=== PATIENT | female | born 1985 | race Caucasian/White ===

== ENCOUNTER 2025-03-23 19:25 | Emergency (ER) | payer BC, SELFPAY ==
[2025-03-23 19:35] VITALS: BP 154/102
[2025-03-23 20:16] LABS: Hematocrit 37.2 % (37.0-47.0); Hemoglobin 12.6 g/dL (12.0-16.0); Mean Corp Hgb Conc. 33.9 g/dL (33.0-37.0); Mean Corpuscular Volume 91.0 fL (81.0-99.0); Nucleated Red Blood Cells % 0 %; Platelet Count 320 10^3/uL (130-400); Red Cell Dist. Width 12.6 % (11.5-14.5)
[2025-03-23 20:21] LABS: HCG, Serum Qualitative Screen Negative
[2025-03-23 20:22] LABS: Chloride 104 mmol/L (98-107); Potassium 3.9 mmol/L (3.5-5.1); Sodium 139 mmol/L (135-145)
[2025-03-23 20:25] LABS: ALT (SGPT) 13 U/L (0-35); AST (SGOT) 20 U/L (14-36); Acetaminophen < 10 ug/ml (10-30); Albumin 4.9 g/dl (3.5-5.0); Alkaline Phosphatase 87 U/L (38-126); Blood Urea Nitrogen 16 mg/dl (7-17); Calcium 9.1 mg/dl (8.4-10.2); Carbon Dioxide 26 mmol/L (22-30); Glucose 127 mg/dl (70-99); Salicylate < 1.0 mg/dl (2.0-20.0); Total Protein 7.8 g/dl (6.3-8.2); eGFR > 60.00
[2025-03-23 20:44] LABS: Magnesium 1.6 mg/dl (1.6-2.3)
[2025-03-24 00:47] VITALS: BP 141/88
--- NOTE | 2025-03-24 00:53 | ED.GENMED ---
History of Present Illness
General
Chief Complaint: Heart Rate Problem
Source: patient
Time Seen by Provider: 03/24/25 00:42
History of Present Illness
History of Present Illness:
40-year-old female presents emergency department with an episode of feeling like she had difficulty controlling her body causing her to fall over, striking her forehead. There was no loss of consciousness, incontinence, seizure-like activity,
confusion or postictal state. She states that she needed assistance back up by her , and did have 1 episode of vomiting. The whole episode of unusual/'erratic' motor movements lasted approximately 20 minutes and then resolved fully. She
denies ever having this experience before. She denies associated numbness, tingling, focal weakness, neck pain, photophobia, diplopia or other visual changes, abdominal pain, dizziness, ataxia, or other complaints. Of note, patient recently had
some changes to her medications for depression/anxiety, describes starting Lexapro approximately 2 months ago, with a discontinuation of her hydroxyzine. No other meds identified. Patient denies drug or alcohol use.
Past History
Past History
ED Past Medical History: Psychiatric and Other (Migraine, kidney stones, alcohol use disorder)
ED Past Surgical History: None
Social History
Tobacco: Smoker
Alcohol: Occasional
Drug: None
Personal:
Living: with family
Phy Exam
Physical Exam
Physical Exam:
GENERAL: Alert , in no apparent distress
EYE: pupils equal and reactive, EOMI, no nystagmus, no photophobia
NECK: Supple, no significant adenopathy.
ENT: o/p clr, mmm.
CARDIAC: Regular rate and rhythm .
LUNGS: Clear breath sounds bilaterally, no acute respiratory distress, no wheezes/rales/rhonchi
ABDOMEN: Soft, without focal tenderness, no r/g, no cvat
NEUROLOGICAL: Alert and oriented, no focal neuro deficits, motor 5 out of 5, sensory intact, cranial nerves II through XII intact, [id number] normal, gait normal, no tremors spasms or abnormal movements noted
SKIN: Warm and dry, skin intact.
MUSCULOSKELETAL: No edema, well perfused.
PSYCH: Normal and appropriate interaction.
Course
Orders/Labs/Results
Orders:
Orders
03/23/25 19:44
ECG [Electrocardiogram (*1)] Urgent
Reason for Study: Palpitations
03/23/25 19:45
EKG- Treatment ONCE
Test Result ONCE
03/23/25 19:58
Acetaminophen Urgent
Alcohol Urgent
Complete Blood Count/With Diff Urgent
Comprehensive Metabolic Panel Urgent
HCG, Serum Qualitative Screen Urgent
Magnesium Urgent
Comment: ADD ON
Salicylate Urgent
TSH Reflex To Free T4 Urgent
03/23/25 20:20
Add On- LAB Urgent
Comments:: sst in lab
Tests Added?: mag
03/24/25 00:53
CT Head W/o Iv Contrast Urgent
Comment:
Reason For Exam: head injury
Acetaminophen [Tylenol] 1,000 mg PO NOW STA
03/24/25 01:12
Ondansetron Orally Disint [Zofran Odt (Orally Disintegrating)] 4 mg .ROUTE .STK-MED ONE
Ondansetron Orally Disint [Zofran Odt (Orally Disintegrating)] 4 mg PO NOW STA
Abnormal Lab Results
03/23/25
19:58
RBC 4.09 L 10^6/uL
(4.20-5.40)
Glucose 127 H mg/dl
(70-99)
Salicylates < 1.0 L mg/dl
(2.0-20.0)
Acetaminophen < 10 L ug/ml
(10-30)
03/23/25 19:58
03/23/25 19:58
Vital Signs
Initial and Last Documented VS:
Initial Vital Signs
Temp Pulse Resp BP Pulse Ox
99.4 F 129 20 154/102 99
03/23/25 19:35 03/23/25 19:35 03/23/25 19:35 03/23/25 19:35 03/23/25 19:35
Last Documented Vital Signs
Temp Pulse Resp BP Pulse Ox
98.4 F 71 18 115/70 99
03/24/25 01:03 03/24/25 02:15 03/24/25 02:15 03/24/25 02:00 03/24/25 02:15
*Pulse Oximetry
SaO2: 100
Oxygen Mode of Delivery: Room air
Update Note
Update Note:
Patient presents to the Emergency Department with ___jerking movements involuntarily
Number and Complexity of Problems Addressed at the Encounter
� Chronic conditions affecting care:
� Acute Exacerbation and/or Progression of Chronic Illness:
� Differential Diagnosis includes: But not limited to drug/alcohol withdrawal, medication effect, electrolyte disorder, etc. etc.
Amount and/or Complexity of Data to be Reviewed and Analyzed
� I performed an independent evaluation of and my interpretation is:
EKG:
CT:vision head ct nad
Xrays:
Laboratory Studies: Generally unremarkable
Other:
� Review of other/old records reveals:
� Clinical information was obtained by an independent historian:
� Prescriptions/Medications Considered but not given:
� Further testing considered but not performed:
Risk of Complications and/or Morbidity or Mortality of Patient Management
� Social determinants of health affecting care:
� Discussion with other providers (PCP, Hospitalists, Consultants, etc):
� Escalation of care including admission/observation vs risk of discharge considered:
ED Attending Note
-
Portions of this chart may have been created with voice recognition software.� Occasional wrong word or��sound alike� substitutions may have occurred due to the inherent limitations of voice recognition software.
Discharge Plan
Departure
Patient Disposition: Home (Routine Discharge)
Date of Disposition: 03/24/25
Time of Disposition: 02:45
Patient with high blood pressure during this ER visit?: Yes
Condition: Good
Discharge Problem:
Head injury
Instructions: Head injury in adults, BLOOD PRESSURE
Prescriptions:
No Action
escitalopram oxalate [Lexapro] 5 mg Tablet
PO DAILY
Patient Comments:
the pt is unsure exact dose of medication
Referrals:
Brandon Villatoro MD [Active, Neurology] - Next open appointment
Dante Frost PA-C [Family Provider, Family Practice]
Activity Restrictions/Additional Instructions:
IF YOU DEVELOP NUMBNESS, WEAKNESS, IMBALANCE, SEVERE HEADACHE, CHANGE IN VISION, CHANGE IN SPEECH, OR OTHER WORRISOME SIGNS, PLEASE RETURN TO THE ER IMMEDIATELY!
Interventions
Interventions:
*Risk Screen - Suicide Last Done: 03/24/25 01:05
*General Assessment Last Done: 03/24/25 01:05
*Neglect/Abuse Screening Last Done: 03/24/25 01:05
*ED- Fall Risk Assessment Last Done: 03/24/25 01:05
*ED COVID-19 Vaccine History Last Done: 03/24/25 01:05
ED- Cardiac Assessment Last Done: 03/24/25 01:07
ED-Musculoskeletal Assessment Last Done: 03/24/25 01:08
ED- Pulmonary Assessment Last Done: 03/24/25 01:08
Discharge Date and Time
Print Language: PASHTO
[2025-03-24 01:00] VITALS: BP 120/77
[2025-03-24 01:03] VITALS: BP 120/77
[2025-03-24] MEDS: TYLENOL 1000 MG PO (01:04)
[2025-03-24 01:06] VITALS: BMI 22.7
[2025-03-24] MEDS: ZOFRAN ODT (ORALLY DISINTEGRATING) 4 MG PO (01:12)
[2025-03-24 02:00] VITALS: BP 115/70
== END 2025-03-24 03:08 | disposition home or self-care (01) ==
LOC: EMR 19:25
PROVIDERS: Emergency Medicine; EMERGENCY PHYSICIAN Emergency Medicine; FAMILY PHYSICIAN Physician Assistant Medical
DX: S09.90XA Unspecified injury of head, initial encounter (principal); W19.XXXA Unspecified fall, initial encounter; F32.A Depression, unspecified; F41.9 Anxiety disorder, unspecified; F17.200 Nicotine dependence, unspecified, uncomplicated; Z87.442 Personal history of urinary calculi
CPT/HCPCS: 99284; 70450; 80053; 80143; 80179; 82077; 83735; 84443; 84703; 85025; 93005